=== PATIENT | male | born 1990 ===

== ENCOUNTER 2017-11-21 16:21 | Emergency (ER) | payer SELFPAY ==
[2017-11-21] MEDS ORDERED: TETRACAINE HCL 0.5% OPHTH SOL 1 DROP OPHTH ONE (16:22)
--- NOTE | 2017-11-21 16:42 | ED.PDOC ---
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 HE HAD RUBBED THE EYE FOR A LITTLE WHILE AND WASHED IT STILL HAS IRRITATION NO LOSS OF VISION HE HAS RED LEFT EYE VISUAL ACUITY 20/20 RIGHT EYE 20/30 LEFT EYE - History of Present Illness Timing/Duration: this morning EENT Location: eye (L) Prearrival Treatment: no prearrival treatment Improving Factors: nothing Worsening Factors: nothing Associated Symptoms: denies symptoms Allergies/Adverse Reactions: Allergies NO KNOWN ALLERGY Allergy (Verified 11/21/17 16:39) Home Medications: Ambulatory Orders Erythromycin Ophth Oint 1 gm OPHTH DAILY #1 tube 11/21/17 Review of Systems - Review of Systems Constitutional: States: no symptoms reported EENTM: States: eye pain, tearing Respiratory: States: no symptoms reported Cardiology: States: no symptoms reported Gastrointestinal/Abdominal: States: no symptoms reported Genitourinary: States: no symptoms reported Musculoskeletal: States: no symptoms reported Skin: States: no symptoms reported Neurological: States: no symptoms reported Endocrine: States: no symptoms reported Hematologic/Lymphatic: States: no symptoms reported Family Medical History - Family History Grandparents Family History: Unknown Physical Exam - Physical Exam General Appearance: Alert, Comfortable Eye Exam: right normal - LEFT EYE CONJUNCTIVA IRRITATED Nasal Exam: normal inspection Throat Exam: normal mouth inspection, pharynx normal Cardiovascular/Respiratory: regular rate, rhythm, no M/R/G, normal peripheral pulses, no JVD 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
[2017-11-21] MEDS ORDERED: SODIUM CHLORIDE 0.9% 1000ML 1,000 ML ONE (17:04)
[2017-11-21 18:18] VITALS: BP 123/73; TEMP 97.3; O2SAT 96
== END 2017-11-21 18:10 | disposition home or self-care (01) ==
LOC: ER 16:21
DX: H57.8 Other specified disorders of eye and adnexa (principal)